=== PATIENT | male | born 1955 | race Caucasian/White ===

== ENCOUNTER 2021-07-11 07:30 | Day surgery (SDC) | payer OTHER, MEDICARE ==
[2021-07-08 13:51] LABS: Potassium 3.5 mmol/L (3.5-5.1)
[2021-07-08 13:52] LABS: Absolute Lymphocytes (CBC) 1.8 K/uL (0.7-4.9); Hematocrit 40.7 % (39.6-49.0); Lymphocytes % 28.1 % (15.3-44.8); MPV 8.6 fL (7.6-11.3); Protime INR 0.97; RBC Red Blood Cell Count 4.54 M/uL (4.33-5.43)
[2021-07-11] MEDS ORDERED: NA CHLORIDE 0.9% 500 ML ONE ×2 (07:43→08:35)
[2021-07-11] MEDS ORDERED: HEPA 1000U/500MLS 1,000 UNIT/500 ML BAG IV ONE (08:25)
[2021-07-11] MEDS ORDERED: LIDOCAINE 1% 20 ML MDV ONE (08:25)
[2021-07-11] MEDS ORDERED: MIDAZOLAM HCL 2 MG/2 ML INJ ONE ×2 (08:35→09:05)
[2021-07-11] MEDS ORDERED: FENTANYL CITR 100 MCG/2 ML ONE (08:35)
[2021-07-11] MEDS ORDERED: ATROPINE SULF 1 MG/10 ML SYR IV ONE (08:36)
[2021-07-11] MEDS ORDERED: NA CHLORIDE 0.9% 0 ML ONE (08:36)
[2021-07-11] MEDS ORDERED: METHYLPREDNISOLONE 125 MG INJ ONE (08:45)
[2021-07-11] MEDS ORDERED: DIPHENHYDRAMINE 50 MG/ML VIAL ONE (08:45)
[2021-07-11] MEDS ORDERED: FLUMAZENIL 0.1 MG/ML (5 mL VIAL) IV ONE (08:47)
--- NOTE | 2021-07-11 10:28 | OP ---
Surgeon: Allan Alicea MD The patient was admitted on 07/11/2021 as an outpatient to the [facility]. Procedures Performed: He underwent left heart catheterization, selective coronary arteriogram. Indication: Positive stress test and chest pain and abnormal calcium score. Mr. Lauren is a 66, has a history of abnormal stress test in the past. He is having more chest pain, had an abnormal calcium score. Has hypertension, dyslipidemia. Procedure In Detail: Brought to the [facility] today as an outpatient, prepped and draped in routine s terile fashion, given Versed for sedation and fentanyl. He was also given IV Solu-Medrol for shellfi sh allergy 125 mg. A 6-Hungarian sheath introduced in the right common femoral artery successfully usin g the Seldinger technique and 10 cc of Xylocaine. Angiography there was normal. Angio-Seal was used to close the case. Meseret catheter left and right were used to cannulate the left main and right m ain respectively. He was found to have a normal left main, normal LAD, and normal circumflex with he osmin calcification on the outside of the blood vessel, but no focal stenosis. He was codominant. He had a 40% distal RCA. There were no complications. Blood Loss: 5 mL. Anesthesia: Total conscious sedation was 45 minutes. Postoperative Diagnosis: Mild coronary artery disease. Plan: Continue medical therapy. The patient will remain in the hospital for 2 hours of bedrest afte r which he will go home and I will see him in the office in the next 2 weeks. Continue home medicati on as they are doing already. The patient is on Lipitor 80 mg daily and aspirin. YOSELIN/BE Voice ID: [id number] Report ID: [id number]
[2021-07-11 11:16] VITALS: BP 131/79; O2SAT 99
== END 2021-07-11 11:15 | disposition home or self-care (01) ==
LOC: CCL 07:30
DX: I25.110 Atherosclerotic heart disease of native coronary artery with unstable angina pectoris (principal); I10 Essential (primary) hypertension; E78.5 Hyperlipidemia, unspecified; Z91.013 Allergy to seafood; Z20.822 Contact with and (suspected) exposure to COVID-19
CPT/HCPCS: 85025; 80048; 36415; 85610; 85730; 93454; U0003; C1893; C1760; J2250 ×2; J3010; J7040 ×2; J1644; J2930; J0583; J1200

== ENCOUNTER 2022-07-14 06:07 | Day surgery (SDC) | payer OTHER, MEDICARE ==
[2022-07-11 11:31] LABS: Potassium 3.7 mmol/L (3.5-5.1)
[2022-07-11 11:44] LABS: Absolute Lymphocytes (CBC) 1.6 K/uL (0.7-4.9); Hematocrit 38.8 % (39.6-49.0); Lymphocytes % 24.5 % (15.3-44.8); MCV 90.2 fL (80-100); MPV 7.6 fL (7.6-11.3)
--- NOTE | 2022-07-11 12:11 | RAD REPORT ---
EXAM DESCRIPTION: RAD - Chest Pa And Lat (2 Views) - 07/11/2022 11:12 am CLINICAL HISTORY: pdre op for surgery COMPARISON: Two view chest 02/02/2021 TECHNIQUE: Frontal and lateral views of the chest were obtained. FINDINGS: The lungs are clear. Interstitial pattern matches comparison. No hilar mass or lymphadeno toni. Heart size is normal and central vasculature is within normal limits. No pleural effusion or pneumothorax seen. No acute bony finding noted. No aortic abnormality. IMPRESSION: No acute cardiopulmonary process. No significant change from comparison study.
[2022-07-11 12:48] LABS: Protime INR 0.95
--- NOTE | 2022-07-13 08:02 | EKG ---
Test Date: 2022-07-11 Test Time: 10:52:00 [employer] Screen Watcher: PATIENCE MEASUREMENT RESULTS: Intervals: Rate: 56 WY: 144 QRSD: 110 QT: 400 QTc: 386 [place]: P: 24 WY: 144 QRS: 47 T: -12 INTERPRETIVE STATEMENTS: Sinus bradycardia Possible Inferior infarct, age undetermined Abnormal ECG Compared to ECG 01/20/2008 01:18:27 Myocardial infarct finding now present Electronically Signed On 07-13-22 07:56:56 REGULATORY COMPLIANCE MANAGER by Trell Arshad
[2022-07-14] MEDS ORDERED: Ringers Lactate 1,000 ML IV ONE (06:15)
[2022-07-14] MEDS ORDERED: CEFAZOLIN SODIUM 2 GM/VIAL ONE (06:15)
[2022-07-14] MEDS ORDERED: LIDOCAINE 1% MPF 5 ML VIAL ONE (07:07)
[2022-07-14] MEDS ORDERED: FENTANYL CITR 100 MCG/2 ML ONE (07:07)
[2022-07-14] MEDS ORDERED: EPINEPHRINE/PF 1 MG/ML AMP ONE ×2 (07:07→07:17)
[2022-07-14] MEDS ORDERED: MIDAZOLAM HCL 2 MG/2 ML INJ ONE (07:07)
[2022-07-14] MEDS ORDERED: SODIUM BICARB 50 MEQ/50ML VIAL ONE (07:08)
[2022-07-14] MEDS ORDERED: propofoL 200 MG/20 ML VIAL IV ONE (07:51)
[2022-07-14] MEDS ORDERED: dexAMETHasone 10 MG/ML VIAL ONE (07:52)
[2022-07-14] MEDS ORDERED: KETOROLAC 30 MG/ML INJ ONE (07:52)
[2022-07-14] MEDS ORDERED: ROCURONIUM 50 MG/5 ML VIAL IV ONE (07:52)
[2022-07-14] MEDS ORDERED: ONDANSETRON 4 MG/2 ML VIAL ONE (07:52)
[2022-07-14] MEDS ORDERED: LIDOCAINE 2% MPF 5 ML VIAL ONE (07:52)
[2022-07-14] MEDS ORDERED: NS 0.9% VIAL 30 ML ONE (08:55)
--- NOTE | 2022-07-14 10:50 | P.BOP ---
Preoperative diagnosis: right shoulder rotator cuff tear, biceps tendinitis, impingement syndrome Postoperative diagnosis: same, right shoulder SLAP tear Primary procedure: right shoulder arthroscopic rotator cuff repair Secondary procedure: right shoulder arthroscopic biceps tenotomy with SLAP debridement Other procedure(s): right shoulder arthroscopic subacromial decompression Duct Layer Supervisor: NONE,NONE Estimated blood loss: 10 cc Specimen: none Findings: see dictation Anesthesia: General Complications: None Implants: 1- 5.5 mm Arthrex corkscrew, 2- 4.75 mm Arthrex swivelock Fluids & blood products: per anesthesia record Transferred to: Recovery Room Condition: Good
--- NOTE | 2022-07-14 12:03 | RAD REPORT ---
EXAM DESCRIPTION: RAD - Shoulder 1 View - 07/14/2022 11:24 am CLINICAL HISTORY: shoulder surgery FINDINGS: Frontal view of the shoulder was obtained. No fracture or dislocation is seen. Postsurgical changes involve shoulder.
[2022-07-14 14:46] VITALS: BP 110/71
[2022-07-14 15:06] VITALS: TEMP 97; O2SAT 97
--- NOTE | 2022-07-14 19:50 | OP ---
Date of Procedure: 07/14/2022 Surgeon: Raoul Freed MD Preoperative Diagnoses: 1.Right shoulder rotator cuff tear. 2.Right shoulder biceps tendinitis. 3.Right wrist impingement syndrome. Postoperative Diagnoses: 1.Right shoulder rotator cuff tear. 2.Right shoulder biceps tendinitis. 3.Right wrist impingement syndrome. 4.Right shoulder superior labral anterior posterior tear. Procedures Performed: 1.Right shoulder arthroscopic rotator cuff repair. 2.Right shoulder arthroscopic biceps tenotomy with superior labral anterior posterior tear debrideme nt. 3.Right shoulder arthroscopic subacromial decompression. Anesthesia: General endotracheal. Estimated Blood Loss: 10 cc. Complications: None. Fluids: Per Anesthesia record. Implants: 1.One 5.5 mm Arthrex corkscrew. 2.Two 4.75 mm Arthrex SwiveLock. Indication For Procedure: Myron is a 67-year-old male was in my clinic with signs, symptoms, and M RI findings consistent with a right shoulder rotator cuff tear with some retraction. I discussed wit h the patient at length risks and benefits associated with operative and nonoperative treatment. Giv en his continued pain and MRI findings, elected to proceed with operative treatment. Description Of Procedure: After informed consent was obtained, the patient was identified in the pre operative holding area. The right upper extremity was marked. Patient was then brought back to the PACU where he underwent an interscalene block to his right upper extremity performed by Anesthesia. The patient was then brought back to the operating room, transferred to the operating table and under supine fashion, placed under general endotracheal anesthesia. He was then placed in the beach chair position with his extremities well padded. The right upper extremity was then prepped and draped in usual sterile fashion. A time-out was initiated. The correct patient and procedure confirmed and i dentified. The patient did receive his preoperative prophylactic antibiotics. A spinal needle was i ntroduced into the glenohumeral joint via the posterior portal position. 30 cc of normal saline was injected into the shoulder joint to distend the capsule. The 11 blade was used to create a posterior portal. Arthroscope was brought in via the posterior portal position and an arthroscopy was perform ed. Under direct visualization, an anterior portal and cannula were placed. Patient was noted to jarrett ve a type 2 SLAP tear with some fraying of the biceps tendon at the anchor. A biceps tenotomy was th en performed using a meniscal biter and arthroscopic shaver. The subscapularis was found to be intac t. Anterior posterior labrum was also found to be intact and stable to probe. There were some small cartilaginous loose bodies within the axillary pouch, which were removed using an arthroscopic shave r. Patient was noted to have appeared to be a loose body anteriorly on the MRI; however, there was n o loose bodies found anterior to the subscapularis, which was likely capsulated. The patient is note d to have a full-thickness supraspinatus tear as well as anterior infraspinatus tear. It was retract ed to the level of the glenoid. Arthroscopic shaver was then used to debride the scar tissue over th e superior bursal side as well as articular side of the tear to release any adhesions to help repair the rotator cuff without tension. The arthroscope was then brought into the subacromial space and a subacromial bursectomy was performed using an arthroscopic shaver through the lateral portal. After all adhesions were debrided and the rotator cuff was able to be reduced back onto the greater tuberos ity, arthroscopic shaver was then used to debride the greater tuberosity to create a bleeding bony be d. A single 5.5 mm Arthrex corkscrew was placed, which was double loaded with suture. Sutures were then passed through the rotator cuff tear in an anterior posterior fashion in a horizontal mattress f ashion. The medial row repair was then used by tying the sutures in a horizontal mattress fashion. The sutures were then crisscross to increase surface area of the repair and 2 4.75 mm Arthrex SwiveLo cks were placed. The repair was reinforced by using sutures fell within the SwiveLocks af ter repair anterior as well as posteriorly to increase the surface area of the repair. Any remaining suture limbs were then cut. There was some fraying of the coracoacromial ligament. Undersurface of the acromion was debrided using the arthroscopic radiofrequency ablator as well as an arthroscopic s haver. Acromioplasty was performed using the arthroscopic damon. Arthroscopic instruments were then removed without complication. Wounds were then irrigated thoroughly with normal saline. Skin was ap proximated using a 2-0 Vicryl and portals were approximated using a 4-0 Monocryl. Sterile dressings were applied. Patient was placed in a shoulder immobilizer, awakened, and transferred to PACU in sta ble condition. Postoperative Plan: The patient will be nonweightbearing in his right upper extremity. He will begi n physical therapy at 6 weeks postop for medium rotator cuff repair protocol. ASHELY/BE Voice ID: [id number] Report ID: [id number]
== END 2022-07-14 13:28 | disposition home or self-care (01) ==
LOC: OR 06:07
PROVIDERS: ATTEND Orthopaedic Surgery Sports Medicine
PROC: 0RNJ4ZZ Release Right Shoulder Joint, Percutaneous Endoscopic Approach (ICD-10-PCS; 2022-07-14)
PROC: 0LM14ZZ Reattachment of Right Shoulder Tendon, Percutaneous Endoscopic Approach (ICD-10-PCS; principal; 2022-07-14 08:00)
DX: M75.121 Complete rotator cuff tear or rupture of right shoulder, not specified as traumatic (principal); M75.21 Bicipital tendinitis, right shoulder; M25.831 Other specified joint disorders, right wrist; S43.431A Superior glenoid labrum lesion of right shoulder, initial encounter
CPT/HCPCS: 93005; 85025; 80048; 36415; 85610; 85730; 71046; 73020; 29827; 29826; 29822; J2704; J0171 ×2; J2001 ×2; J2250; J3010; J1100; A4216; J7120; J2405